=== PATIENT | male | born 1980 | race Caucasian/White ===

== ENCOUNTER 2016-11-24 00:15 | Observation (INO) | payer MEDICAID ==
[~2016-11-24 00:15] MED LIST: AMLODIPINE; ASPIRIN ENTERI325 MG; ASPIRIN ENTERI325 MG PO; ATENOLOL50 MG; ATENOLOL50 MG PO; CLEOCIN HCL300 MG PO; CLINDAMYCIN HC300 MG; CLINDAMYCIN HC300 MG PO; COATED ASPIRIN325 M1 PO; DIAZEPAM2 MG PO; ENTERIC COATED325 M PO; FLEXERIL10 MG PO; HYDROCODONE; KEFLEX500 MG PO; MOTRIN600 MG PO; MULTIVITAMIN1 CAP PO; MULTIVITAMIN1 TAB; NO MEDS; NORCO 5/325 TAB1 TAB PO; NORVASC; NORVASC5 MG; NORVASC5 MG PO; PERCOCET 5/3251 TAB PO; PRILOSEC OTC20 MG; SKELAXIN800 MG PO; TENORMIN50 MG; VIBRAMYCIN100 MG/TA1 PO; VICODIN 5/500 T1 TAB PO; VICODIN ES TABL1 TAB PO; VOLTAREN75 MG PO; ZITHROMAX500 M1 PO; [UNRECOGNIZED DRUG - OTHER]
[2016-11-24] MEDS ORDERED: ASPIRIN EC325 M1 PO (02:23)
[2017-03-10] MEDS ORDERED: BACTRIM DS TAB1 EAC2 PO (12:36)
== END 2016-11-24 06:35 | disposition other institution (70) ==
LOC: EDMED 00:15 → EMR2 02:00 → CAR1 02:09
PROVIDERS: ADMIT Internal Medicine Cardiovascular Disease
DX: R07.9 Chest pain, unspecified (principal); I10 Essential (primary) hypertension; I71.4 Abdominal aortic aneurysm, without rupture; Z87.891 Personal history of nicotine dependence; Z79.82 Long term (current) use of aspirin; Z88.0 Allergy status to penicillin; Z88.8 Allergy status to other drugs, medicaments and biological substances; Z86.718 Personal history of other venous thrombosis and embolism; Z98.890 Other specified postprocedural states
CPT/HCPCS: G0378; J2270

== ENCOUNTER 2017-02-19 14:19 | Observation (INO) | payer MEDICAID ==
[~2017-02-19] VITALS: Ht 203.2 cm; Wt 122.0 kg
[~2017-02-19 14:19] MED LIST changes: +ASPIRIN EC325 M1 PO
[2017-02-19] MEDS ORDERED: NORVASC10 M2 PO (14:45)
[2017-02-19] MEDS ORDERED: METOPROLOL TART25 M1 PO (14:46)
[2017-02-19 15:17] LABS: BASO % 0.4 % (0-2); EOS % 3.2 % (0-7); EOSINOPHIL ABSOLUTE COUNT 0.2 tho/cmm (0.0-0.7); HCT-HEMATOCRIT 42.2 % (36.0-53.5); HGB-HEMOGLOBIN 14.5 gm/dl (13.5-17.0); IMMATURE GRANULOCYTES ABSOLUTE 0.01 tho/cmm (0-0.03); IMMATURE GRANULOCYTES PERCENT 0.1 % (0-0.3); LYMPH % 24.4 % (20-45); LYMPH ABSOLUTE COUNT 1.9 tho/cmm (0.8-4.5); MCH (MEAN CORPUSCULAR HGB) 28.3 pg (28.0-32.0); MCHC MEAN CORPUSCULAR HGB CONC 34.4 % (32.0-36.0); MCV (MEAN CELL VOLUME) 82.4 fl (82.0-96.0); MEAN PLATELET VOLUME 9.5 cmc (9.4-12.4); MONO % 8.5 % (0-12); MONOCYTE ABSOLUTE COUNT 0.6 tho/cmm (0.0-1.2); NEUTROPHIL ABSOLUTE COUNT 4.8 tho/cmm (1.6-8.0); NEUTROPHIL-AUTOMATED 4.8 tho/cmm (1.6-8.0); NEUTROPHILS % 63.4 % (40-80); PLATELET COUNT 283 tho/cmm (150-450); RED BLOOD COUNT 5.12 mil/cmm (4.40-5.70); RED CELL DISTRIBUTION WIDTH 14.8 % (12.4-16.4); WHITE BLOOD COUNT 7.6 tho/cmm (4.0-10.0)
[2017-02-19 15:38] LABS: ANION GAP 11 mmol/L (0-20); BLOOD UREA NITROGEN 9 mg/dl (6-24); C-REACTIVE PROTEIN 5.5 mg/dl (0-0.9); CALCIUM 8.5 mg/dl (8.5-10.5); CARBON DIOXIDE-VENOUS 26 mmol/L (22-32); CHLORIDE 104 mmol/l (96-110); CREATININE 1.19 mg/dl (0.60-1.30); GLUCOSE 131 mg/dL (70-110); POTASSIUM 3.6 mmol/L (3.7-5.1); SODIUM 137 mmol/L (135-145); eGFR VALUE FOR BLACK >90 mL/Min
[2017-02-20 06:43] LABS: BASO % 0.4 % (0-2); EOS % 6.3 % (0-7); EOSINOPHIL ABSOLUTE COUNT 0.4 tho/cmm (0.0-0.7); HGB-HEMOGLOBIN 13.4 gm/dl (13.5-17.0); IMMATURE GRANULOCYTES ABSOLUTE 0.03 tho/cmm (0-0.03); IMMATURE GRANULOCYTES PERCENT 0.4 % (0-0.3); LYMPH % 30.8 % (20-45); LYMPH ABSOLUTE COUNT 2.2 tho/cmm (0.8-4.5); MCH (MEAN CORPUSCULAR HGB) 27.7 pg (28.0-32.0); MCHC MEAN CORPUSCULAR HGB CONC 33.5 % (32.0-36.0); MCV (MEAN CELL VOLUME) 82.6 fl (82.0-96.0); MEAN PLATELET VOLUME 9.5 cmc (9.4-12.4); MONOCYTE ABSOLUTE COUNT 0.8 tho/cmm (0.0-1.2); NEUTROPHIL ABSOLUTE COUNT 3.5 tho/cmm (1.6-8.0); NEUTROPHIL-AUTOMATED 3.5 tho/cmm (1.6-8.0); NEUTROPHILS % 50.1 % (40-80); PLATELET COUNT 275 tho/cmm (150-450); RED BLOOD COUNT 4.84 mil/cmm (4.40-5.70); RED CELL DISTRIBUTION WIDTH 14.8 % (12.4-16.4)
[2017-02-20 06:59] LABS: ANION GAP 9 mmol/L (0-20); BLOOD UREA NITROGEN 13 mg/dl (6-24); CALCIUM 8.4 mg/dl (8.5-10.5); CARBON DIOXIDE-VENOUS 29 mmol/L (22-32); CHLORIDE 105 mmol/l (96-110); CREATININE 0.94 mg/dl (0.60-1.30); GLUCOSE 93 mg/dL (70-110); SODIUM 139 mmol/L (135-145); eGFR VALUE FOR BLACK >90 mL/Min
[2017-02-20 07:14] LABS: ESR-ERYTHROCYTE SED RATE 10 mm/hr (0-15)
[2017-02-21 06:07] LABS: CREATININE 1.08 mg/dl (0.60-1.30); eGFR VALUE FOR BLACK >90 mL/Min
[2017-02-21] MEDS ORDERED: VIBRAMYCIN100 M1 PO (12:37)
[2017-02-21] MEDS ORDERED: NORCO 5-325 TA1 EACH PO (12:38)
== END 2017-02-21 13:15 ==
LOC: EDMED 14:19 → 5WE 16:49 → EMR2 16:49 → 5WE 17:31
PROVIDERS: Nurse Practitioner Family; ADMIT Family Medicine
DX: L03.116 Cellulitis of left lower limb (principal); Q87.40 Marfan syndrome, unspecified; I10 Essential (primary) hypertension; I71.4 Abdominal aortic aneurysm, without rupture; Z86.718 Personal history of other venous thrombosis and embolism; Z87.891 Personal history of nicotine dependence; Z88.0 Allergy status to penicillin; Z88.8 Allergy status to other drugs, medicaments and biological substances; Z79.82 Long term (current) use of aspirin; Z79.899 Other long term (current) drug therapy
CPT/HCPCS: J2270; J3370; J7030